=== PATIENT | male | born 1970 | race Caucasian/White ===

== ENCOUNTER 2022-02-25 14:43 | Observation (INO) | payer OTHER ==
[~2022-02-25] VITALS: Ht 191.8 cm; Wt 149.7 kg
[2022-02-25 15:21] LABS: BASOPHILS % (AUTO) 0.2 % (0.0-5.0); EOSINOPHILS % (AUTO) 0.1 % (0.0-8.0); HEMATOCRIT 33.2 % (42-54); LYMPHOCYTES % (AUTO) 9.3 % (21.0-51.0); MEAN CORPUSCULAR HEMOGLOBIN 33.7 pg (27.0-33.0); MEAN CORPUSCULAR HGB CONC 34.3 g/dL (32.0-36.0); MEAN CORPUSCULAR VOLUME 98.2 fL (79-99); MONOCYTES % (AUTO) 11.4 % (3.0-13.0); NEUTROPHILS % (AUTO) 78.4 % (40.0-77.0); PLATELET COUNT (AUTO) 98 K/uL (130-400); RED BLOOD CELL COUNT(AUTO) 3.38 MIL/uL (4.50-6.20); RED CELL DISTRIBUTION WIDTH 15.9 % (11.0-15.5); WHITE BLOOD COUNT (AUTO) 10.8 K/uL (4.8-10.8)
[2022-02-25] MEDS ORDERED: ACETAMINOPHEN 500 MG TABLET PO ONE (15:30)
[2022-02-25 15:38] LABS: APPEARANCE,URINE CLEAR (CLEAR); BILIRUBIN,URINE MODERATE (NEGATIVE); COLOR,URINE YELLOW (YELLOW); GLUCOSE, URINE (UA) NEGATIVE (NEGATIVE); KETONES,URINE NEGATIVE (NEGATIVE); LEUKOCYTE ESTERASE ,URINE NEGATIVE (NEGATIVE); NITRATE,URINE NEGATIVE (NEGATIVE); OCCULT BLOOD,URINE SMALL (NEGATIVE); PROTEIN,URINE 100 mg/dL (NEGATIVE)
[2022-02-25 15:40] LABS: B-TYPE NATRIURETIC PEPTIDE 85 pg/mL (0-100)
[2022-02-25] MEDS: 0.9%NACL 1000ML 1,000 ML IV SCH ×2 (15:45→21:09)
[2022-02-25 15:48] LABS: BACTERIA,URINE Rare /HPF (None Seen); SQUAMOUS EPITHELIAL CELL,UR Rare /HPF (0-2); WBC,URINE 0-1 /HPF (0-1)
[2022-02-25] MEDS ORDERED: LACTULOSE 20 GM/30 ML UDCUP ONE (15:52)
[2022-02-25 15:55] LABS: CREATININE 1.4 mg/dL (0.5-1.5); POTASSIUM 4.4 mmol/L (3.5-5.1)
[2022-02-25 15:59] LABS: ALBUMIN 1.9 g/dL (3.5-5.0); TOTAL PROTEIN, SERUM 5.4 g/dL (6.0-8.3)
[2022-02-25] MEDS ORDERED: LACTULOSE 20 GM/30 ML UDCUP PO PRN (16:00)
[2022-02-25] MEDS ORDERED: PROP10TA10 PO (16:23)
[2022-02-25] MEDS ORDERED: RIFA550T PO (16:23)
[2022-02-25] MEDS ORDERED: FURO40TA5 PO (16:23)
[2022-02-25] MEDS ORDERED: SPIR100T5 PO (16:23)
[2022-02-25] MEDS ORDERED: RIFAXIMIN 550 MG TABLET PO SCH ×2 (16:30→21:00)
[2022-02-25] MEDS: TRAMADOL HCL 50 MG TABLET PO PRN (20:36)
[2022-02-25] MEDS: LACTULOSE 20 GM/30 ML UDCUP PO SCH (20:52)
[2022-02-25 23:28] VITALS: BP 131/53
[2022-02-26] MEDS: TRAMADOL HCL 50 MG TABLET PO PRN (01:14)
[2022-02-26] MEDS ORDERED: DESV100T PO (02:05)
[2022-02-26] MEDS ORDERED: PROP10TA10 PO (02:07)
[2022-02-26] MEDS ORDERED: DIPHENHYDRAMINE HCL 25 MG CAPSULE PO PRN (02:30)
[2022-02-26] MEDS ORDERED: MORPHINE 2 MG SYG IVP PRN (02:30)
[2022-02-26] MEDS ORDERED: DiphenhydrAMINE HCL 50 MG/ML VIAL IV PRN (02:30)
[2022-02-26] MEDS ORDERED: KCL 20 MEQ ERTAB PO PRN (02:30)
[2022-02-26] MEDS ORDERED: GLUCAGON 1MG KIT 1 MG ML IM PRN (02:30)
[2022-02-26] MEDS ORDERED: POTASSIUM CHLORIDE 20MEQ/100ML 100 ML IV PRN (02:30)
[2022-02-26] MEDS ORDERED: ONDANSETRON 4MG INJ IV PRN (02:30)
[2022-02-26] MEDS ORDERED: DEXTROSE 50%-WATER 50 ML DISP.SYRIN IV PRN (02:30)
[2022-02-26] MEDS ORDERED: MAG/ALUM/SIMETH 30 ML UDCUP PO PRN (02:30)
[2022-02-26] MEDS ORDERED: ACETAMINOPHEN 325 MG TAB PO PRN ×2 (02:30)
[2022-02-26] MEDS ORDERED: LIDOCAINE HCL-MPF 1% 2ML VIAL IV PRN (02:30)
[2022-02-26] MEDS ORDERED: POTASSIUM CHLORIDE 10% ELIXIR 20 MEQ/15 ML UDCUP PO PRN (02:30)
[2022-02-26] MEDS: PROPRANOLOL HCL 10 MG TAB PO SCH ×2 (02:32→08:19)
[2022-02-26] MEDS: 0.9%NACL 1000ML 1,000 ML IV SCH ×2 (02:33)
[2022-02-26 04:36] VITALS: BP 127/55
[2022-02-26 05:00] LABS: BASOPHILS % (AUTO) 0.4 % (0.0-5.0); EOSINOPHILS % (AUTO) 2.2 % (0.0-8.0); LYMPHOCYTES % (AUTO) 22.1 % (21.0-51.0); MEAN CORPUSCULAR HEMOGLOBIN 34.7 pg (27.0-33.0); MEAN CORPUSCULAR HGB CONC 34.8 g/dL (32.0-36.0); MEAN CORPUSCULAR VOLUME 99.7 fL (79-99); NEUTROPHILS % (AUTO) 57.9 % (40.0-77.0); PLATELET COUNT (AUTO) 74 K/uL (130-400); RED BLOOD CELL COUNT(AUTO) 2.91 MIL/uL (4.50-6.20)
[2022-02-26 05:10] LABS: CREATININE 1.3 mg/dL (0.5-1.5); POTASSIUM 3.7 mmol/L (3.5-5.1)
[2022-02-26] MEDS: INSULIN HUMULIN R 100 UNIT/ML 3ML SQ SCH ×2 (07:30→11:30)
[2022-02-26 08:00] VITALS: BP 124/64
[2022-02-26] MEDS: RIFAXIMIN 550 MG TABLET PO SCH ×2 (08:19→15:10)
[2022-02-26] MEDS: LACTULOSE 20 GM/30 ML UDCUP PO SCH (08:24)
[2022-02-26] MEDS ORDERED: PROPRANOLOL HCL 10 MG TAB PO SCH (09:00)
[2022-02-26] MEDS ORDERED: SPIRONOLACTONE 25 MG TAB PO SCH (09:00)
[2022-02-26] MEDS ORDERED: PANTOPRAZOLE 40 MG TAB DR PO SCH (09:00)
[2022-02-26] MEDS ORDERED: RIFA550T PO (09:27)
[2022-02-26 11:00] VITALS: BP 122/53
[2022-02-26 16:00] VITALS: BP 156/67
== END 2022-02-26 17:45 | disposition home or self-care (01) ==
LOC: EDH 14:43 → EDHIP 16:29 → 3BH 23:49
PROVIDERS: ADMIT Internal Medicine; ATTEND Internal Medicine
DX: K72.00 Acute and subacute hepatic failure without coma (principal); Z20.822 Contact with and (suspected) exposure to COVID-19; K70.30 Alcoholic cirrhosis of liver without ascites; J30.9 Allergic rhinitis, unspecified; K59.00 Constipation, unspecified; F32.9 Major depressive disorder, single episode, unspecified; I12.9 Hypertensive chronic kidney disease with stage 1 through stage 4 chronic kidney disease, or unspecified chronic kidney disease; N18.2 Chronic kidney disease, stage 2 (mild); N20.0 Calculus of kidney; E66.9 Obesity, unspecified; Z90.49 Acquired absence of other specified parts of digestive tract; Z91.14 Patient's other noncompliance with medication regimen; Z91.19 Patient's noncompliance with other medical treatment and regimen; Z98.84 Bariatric surgery status; Z68.39 Body mass index [BMI] 39.0-39.9, adult; Z79.899 Other long term (current) drug therapy
CPT/HCPCS: 96361 ×2; 99285; 84484; 80053; 83880; 82140 ×2; 83690; 85025 ×2; 87040 ×2; 87804 ×2; 83605; 81001; 36415 ×2; 87635; 71045; 74176; 96374; 80048; 87046; 82948 ×3; 87177; 83630; C9803; Q0163; G0378 ×15; J7030

== ENCOUNTER 2022-09-03 22:41 | Emergency (ER) | payer OTHER ==
[~2022-09-03] VITALS: Ht 190.5 cm; Wt 148.3 kg
[~2022-09-03 22:41] MED LIST: DESV100T PO; FURO40TA5 PO; LACT460C PO; PANT40TA54 PO; POTA10TA PO; PROP10TA10 PO; RIFA550T PO; SPIR100T5 PO
[2022-09-04 00:57] LABS: BASOPHILS % (AUTO) 0.6 % (0.0-5.0); HEMATOCRIT 29.5 % (42-54); MEAN CORPUSCULAR HEMOGLOBIN 34.3 pg (27.0-33.0); MEAN CORPUSCULAR HGB CONC 34.9 g/dL (32.0-36.0); MEAN CORPUSCULAR VOLUME 98.3 fL (79-99); MONOCYTES % (AUTO) 12.2 % (3.0-13.0); NEUTROPHILS % (AUTO) 54.9 % (40.0-77.0); PLATELET COUNT (AUTO) 142 K/uL (130-400); RED CELL DISTRIBUTION WIDTH 16.3 % (11.0-15.5); WHITE BLOOD COUNT (AUTO) 6.6 K/uL (4.8-10.8)
[2022-09-04 01:55] LABS: ALBUMIN 2.2 g/dL (3.5-5.0); CREATININE 1.4 mg/dL (0.5-1.5); POTASSIUM 5.2 mmol/L (3.5-5.1); TOTAL PROTEIN, SERUM 5.5 g/dL (6.0-8.3)
[2022-09-04] MEDS ORDERED: TRAMADOL HCL 50 MG TABLET ONE (02:58)
[2022-09-04] MEDS ORDERED: TRAMADOL HCL 50 MG TABLET PO ONE (03:00)
[2022-09-04 06:02] VITALS: BP 162/87
== END 2022-09-04 06:38 | disposition home or self-care (01) ==
LOC: EDH 22:41
DX: E66.8 Other obesity (principal); K70.30 Alcoholic cirrhosis of liver without ascites; Z79.899 Other long term (current) drug therapy; Z90.49 Acquired absence of other specified parts of digestive tract; Z98.890 Other specified postprocedural states
CPT/HCPCS: 36415; 80053; 82140; 85025

== ENCOUNTER → 2022-11-24 | Outpatient (CLI) | payer OTHER | END | disposition home or self-care (01) | LOC: RAH 07:54 | PROVIDERS: ATTEND Internal Medicine | DX: R60.1 Generalized edema (principal); Z90.49 Acquired absence of other specified parts of digestive tract | CPT/HCPCS: 76700 ==

== ENCOUNTER 2022-11-30 06:53 | Emergency (ER) | payer OTHER ==
[~2022-11-30 06:53] MED LIST changes: +POTA-215 PO; -POTA10TA PO
[2022-11-30 07:48] LABS: BASOPHILS % (AUTO) 0.9 % (0.0-5.0); EOSINOPHILS % (AUTO) 2.6 % (0.0-8.0); HEMATOCRIT 25.6 % (42-54); LYMPHOCYTES % (AUTO) 24.3 % (21.0-51.0); MEAN CORPUSCULAR HEMOGLOBIN 35.4 pg (27.0-33.0); MEAN CORPUSCULAR VOLUME 104.1 fL (79-99); MONOCYTES % (AUTO) 13.4 % (3.0-13.0); NEUTROPHILS % (AUTO) 58.2 % (40.0-77.0); PLATELET COUNT (AUTO) 105 K/uL (130-400); RED BLOOD CELL COUNT(AUTO) 2.46 MIL/uL (4.50-6.20); RED CELL DISTRIBUTION WIDTH 18.9 % (11.0-15.5)
[2022-11-30 08:21] LABS: ALBUMIN 1.6 g/dL (3.5-5.0); CREATININE 1.5 mg/dL (0.5-1.5); POTASSIUM 3.7 mmol/L (3.5-5.1); TOTAL PROTEIN, SERUM 5.1 g/dL (6.0-8.3)
[2022-11-30 08:41] LABS: MAGNESIUM 1.3 mg/dL (1.80-2.40)
[2022-11-30 09:30] LABS: APPEARANCE,URINE CLEAR (CLEAR); BILIRUBIN,URINE 0.5 mg/dL (NEGATIVE); COLOR,URINE YELLOW (YELLOW); GLUCOSE, URINE (UA) NEGATIVE (NEGATIVE); KETONES,URINE NEGATIVE (NEGATIVE); LEUKOCYTE ESTERASE ,URINE NEGATIVE Leu/uL (NEGATIVE); NITRATE,URINE NEGATIVE (NEGATIVE); OCCULT BLOOD,URINE MODERATE (NEGATIVE); PH,URINE 6.5 (5.0-8.0); PROTEIN,URINE 50 mg/dL (NEGATIVE); UROBILINOGEN,URINE 3 mg/dL (0.2-1.0)
[2022-11-30] MEDS ORDERED: MAGNESIUM OXIDE 400 MG TABLET PO SCH (09:30)
[2022-11-30] MEDS ORDERED: BUMETANIDE 1MG/4ML VIAL IM SCH (09:30)
[2022-11-30 09:50] LABS: B-TYPE NATRIURETIC PEPTIDE 111 pg/mL (0-100)
[2022-11-30 10:11] LABS: BACTERIA,URINE RARE /HPF (None Seen)
[2022-11-30 11:32] VITALS: BP 136/78
== END 2022-11-30 11:33 | disposition home or self-care (01) ==
LOC: EDH 06:53
DX: E88.09 Other disorders of plasma-protein metabolism, not elsewhere classified (principal); R60.9 Edema, unspecified; K74.60 Unspecified cirrhosis of liver; Z79.899 Other long term (current) drug therapy
CPT/HCPCS: 99284; 83735; 80053; 83880; 85025; 81001; 36415; J3490

== ENCOUNTER 2023-01-04 00:27 | Emergency (ER) | payer OTHER ==
[~2023-01-04 00:27] MED LIST changes: +FERR-82 PO; -FURO40TA5 PO; +FURO80TA87 PO; +LACT10SO9 PO; +LINA72CA PO; +METO5TAB7 PO; +ONDA-104 PO; -POTA-215 PO; +POTA-364 PO
[2023-01-04 00:58] LABS: APPEARANCE,URINE CLEAR (CLEAR); BILIRUBIN,URINE 0.5 mg/dL (NEGATIVE); COLOR,URINE DARK-YELLOW (YELLOW); GLUCOSE, URINE (UA) NEGATIVE (NEGATIVE); KETONES,URINE NEGATIVE (NEGATIVE); LEUKOCYTE ESTERASE ,URINE NEGATIVE Leu/uL (NEGATIVE); NITRATE,URINE NEGATIVE (NEGATIVE); OCCULT BLOOD,URINE MODERATE (NEGATIVE); PH,URINE 6.5 (5.0-8.0); PROTEIN,URINE 20 mg/dL (NEGATIVE); UROBILINOGEN,URINE 6 mg/dL (0.2-1.0)
[2023-01-04 01:02] LABS: MUCUS,URINE FEW LPF (None Seen); TRIPLE PHOSPHATE CRYSTAL,UR RARE /LPF (None Seen)
[2023-01-04 01:14] LABS: AMPHET/METH SCREEN,URINE NEGATIVE (NEGATIVE); BARBITURATE SCREEN, URINE NEGATIVE (NEGATIVE); BENZODIAZEPINES SCREEN,URINE NEGATIVE (NEGATIVE); CANNABINOID SCREEN,URINE NEGATIVE (NEGATIVE); COCAINE SCREEN,URINE NEGATIVE (NEGATIVE); OPIATE SCREEN,URINE NEGATIVE (NEGATIVE); PHENCYCLIDINE SCREEN,URINE NEGATIVE (NEGATIVE)
[2023-01-04 01:23] LABS: BASOPHILS % (AUTO) 0.7 % (0.0-5.0); EOSINOPHILS % (AUTO) 3.6 % (0.0-8.0); HEMATOCRIT 25.3 % (42-54); LYMPHOCYTES % (AUTO) 24.1 % (21.0-51.0); MEAN CORPUSCULAR HEMOGLOBIN 34.3 pg (27.0-33.0); MEAN CORPUSCULAR HGB CONC 33.2 g/dL (32.0-36.0); MEAN CORPUSCULAR VOLUME 103.3 fL (79-99); MONOCYTES % (AUTO) 18.3 % (3.0-13.0); NEUTROPHILS % (AUTO) 52.9 % (40.0-77.0); PLATELET COUNT (AUTO) 99 K/uL (130-400); RED BLOOD CELL COUNT(AUTO) 2.45 MIL/uL (4.50-6.20); RED CELL DISTRIBUTION WIDTH 16.5 % (11.0-15.5); WHITE BLOOD COUNT (AUTO) 7.2 K/uL (4.8-10.8)
[2023-01-04 01:32] LABS: POTASSIUM 3.2 mmol/L (3.5-5.1)
[2023-01-04 01:38] LABS: ALBUMIN 1.8 g/dL (3.5-5.0); TOTAL PROTEIN, SERUM 5.5 g/dL (6.0-8.3)
[2023-01-04] MEDS ORDERED: PANTOPRAZOLE 40 MG/VIAL IVP ONE (03:00)
[2023-01-04] MEDS ORDERED: METOCLOPRAMIDE 10 MG/2 ML VIAL IVP ONE (03:00)
[2023-01-04] MEDS ORDERED: LACTULOSE 20 GM/30 ML UDCUP PO ONE (05:30)
[2023-01-04] MEDS ORDERED: LACTATED RINGERS 1000ML 1,000 ML IV ONE (05:30)
[2023-01-04 08:11] VITALS: BP 159/62
== END 2023-01-04 08:12 | disposition home or self-care (01) ==
LOC: EDH 00:27
DX: K74.60 Unspecified cirrhosis of liver (principal); F10.229 Alcohol dependence with intoxication, unspecified; E87.6 Hypokalemia; N18.9 Chronic kidney disease, unspecified; Z79.899 Other long term (current) drug therapy
CPT/HCPCS: 99285; 70450; 96374; 71045; 96361; 96375; 82550; 80053; 80305; 82140; 83690; 85025; 83605 ×2; 81001; 36415; 72170; 72125; J7120; C9113; J2765

== ENCOUNTER 2023-01-09 11:04 | Inpatient (IN) | payer OTHER ==
[2023-01-09] VITALS (21 sets, daily range): BP systolic 101–119; BP diastolic 34–56; PULSE 86–94; RESP 14–26; O2SAT 92–95
[~2023-01-09] VITALS: Ht 190.5 cm; Wt 161.5 kg
[~2023-01-09 11:04] MED LIST changes: +ETOMIDATE 20MG VIAL IVP ONE
[2023-01-09] MEDS ORDERED: DEXTROSE 10%-WATER 1,000 ML IV ONE (11:09)
[2023-01-09] MEDS ORDERED: DEXTROSE 50%-WATER 50 ML DISP.SYRIN IV ONE ×3 (11:23→12:06)
[2023-01-09 11:31] LABS: ABG BASE EXCESS -24.2 mmol/L (-2.0-3.0); ABG HCO3 5.5 mmol/L (21.0-28.0); ABG OXYGEN SATURATION 95.3 % (95.0-99.0); ABG PCO2 24 mmHg (35-48)
[2023-01-09] MEDS ORDERED: CEFTRIAXONE 2GM VIAL ONE (11:36)
[2023-01-09 11:58] LABS: BASOPHILS % (AUTO) 0.2 % (0.0-5.0); EOSINOPHILS % (AUTO) 0.3 % (0.0-8.0); LYMPHOCYTES % (AUTO) 6.1 % (21.0-51.0); MEAN CORPUSCULAR HEMOGLOBIN 35.5 pg (27.0-33.0); MEAN CORPUSCULAR HGB CONC 29.3 g/dL (32.0-36.0); MEAN CORPUSCULAR VOLUME 120.9 fL (79-99); MONOCYTES % (AUTO) 2.5 % (3.0-13.0); NEUTROPHILS % (AUTO) 83.2 % (40.0-77.0); NUCLEATED RED BLOOD CELLS 1.2 % (0.0-0.19); PLATELET COUNT (AUTO) 43 K/uL (130-400); RED BLOOD CELL COUNT(AUTO) 1.72 MIL/uL (4.50-6.20); RED CELL DISTRIBUTION WIDTH 19.4 % (11.0-15.5); WHITE BLOOD COUNT (AUTO) 23.6 K/uL (4.8-10.8)
[2023-01-09 12:02] LABS: CHLORIDE 91 mmol/L (101-111); GLOMERULAR FILTR. RATE CALC 13 mL/min (>90); GLUCOSE,RANDOM 237 mg/dL (70-105); POTASSIUM 4.6 mmol/L (3.5-5.1); SODIUM SERUM 130 mmol/L (136-145); UREA NITROGEN, BLOOD 32 mg/dL (7-18)
[2023-01-09 12:04] LABS: CARBON DIOXIDE 9 mmol/L (21-32)
[2023-01-09 12:15] LABS: HEMATOCRIT 20.8 % (42-54)
[2023-01-09 12:15] LABS: ALANINE AMINOTRANSFERASE 165 U/L (12-78); ALBUMIN 1.1 g/dL (3.5-5.0); TOTAL PROTEIN, SERUM 3.7 g/dL (6.0-8.3)
[2023-01-09 12:16] LABS: INR > 7.00 (0.85-1.15); PROTHROMBIN TIME 76.6 SEC (9.6-11.6)
[2023-01-09 12:17] LABS: PARTIAL THROMBOPLASTIN TIME 90.4 SEC (26.3-35.5)
[2023-01-09 12:29] LABS: AMMONIA < 10 umol/L (11-32)
[2023-01-09 12:30] LABS: ABG BASE EXCESS -24.3 mmol/L (-2.0-3.0); ABG HCO3 4.2 mmol/L (21.0-28.0); ABG OXYGEN SATURATION 99.5 % (95.0-99.0); ABG PCO2 16 mmHg (35-48)
[2023-01-09 13:30] LABS: ASPARTATE AMINOTRANSFERASE 818 U/L (10-37)
[2023-01-09 13:31] LABS: CREATINE KINASE, TOTAL 7709 U/L (21-232)
[2023-01-09] MEDS ORDERED: ATROPINE 1MG SYG IVP ONE (15:02)
[2023-01-09] MEDS ORDERED: PHYTONADIONE 10 MG in 0.9%NACL 50ML 50 ML IVPB SCH (15:30)
[2023-01-09] MEDS ORDERED: LACTULOSE 20 GM/30 ML UDCUP PO PRN (15:30)
[2023-01-09] MEDS ORDERED: CHLORDIAZEPOXIDE HCL 25 MG CAP PO PRN ×2 (15:30)
[2023-01-09] MEDS ORDERED: DIPHENHYDRAMINE HCL 25 MG CAPSULE PO PRN (15:30)
[2023-01-09] MEDS ORDERED: PHARMACY COMMUNICATION MISC PRN (15:30)
[2023-01-09] MEDS ORDERED: HYDRALAZINE 25MG TABLET PO PRN (15:30)
[2023-01-09] MEDS ORDERED: GUAIFENESIN-DM 200/20 MG 10 ML PO PRN (15:30)
[2023-01-09] MEDS ORDERED: DiphenhydrAMINE HCL 50 MG/ML VIAL IV PRN (15:30)
[2023-01-09] MEDS ORDERED: ONDANSETRON 4MG INJ IV PRN ×2 (15:30)
[2023-01-09] MEDS ORDERED: LORAZEPAM 2 MG/ML 1 ML VIAL IVP PRN ×2 (15:30)
[2023-01-09] MEDS ORDERED: NITROGLYCERIN 0.4 MG SL TAB SL PRN (15:30)
[2023-01-09] MEDS ORDERED: POLYETHYLENE GLYCOL 3350 17 GM POWD.PACK PO PRN (15:30)
[2023-01-09] MEDS ORDERED: ALBUTEROL 0.083% 2.5 MG/3 ML INH IH PRN (15:30)
[2023-01-09] MEDS ORDERED: VANCOMYCIN PROTOCOL PER PHARMACY IV SCH (16:00)
[2023-01-09] MEDS ORDERED: OCTREOTIDE ACETATE 1,250 MCG in 0.9% NACL 250ML 250 ML IV SCH (16:00)
[2023-01-09] MEDS ORDERED: CEFEPIME HCL 2 GM VIAL IVPB SCH (16:30)
[2023-01-09] MEDS: SODIUM BICARB 8.4% 50ML SYRING 150 MEQ in DEXTROSE 5%-WATER 1,000 ML IVP SCH (16:36)
[2023-01-09] MEDS: THIAMINE HCL 100 MG, FOLIC ACID 1 MG, M.V.I. IV [ADULT] 10 ML in 0.9%NACL 1000ML 1,000 ML IV SCH (16:36)
[2023-01-09] MEDS: MEROPENEM 500 MG in 0.9%NACL 100ML 100 ML IV SCH (16:46)
[2023-01-09] MEDS ORDERED: VANCOMYCIN 1.5 GM/250 ML BAG 250 ML IV SCH (17:00)
[2023-01-09 21:00] LABS: HEMATOCRIT 25.5 % (42-54)
[2023-01-09 21:10] LABS: CREATININE 4.8 mg/dL (0.5-1.5); POTASSIUM 4.7 mmol/L (3.5-5.1)
[2023-01-09] MEDS: LACTULOSE 20 GM/30 ML UDCUP PO SCH (21:38)
[2023-01-09] MEDS: RIFAXIMIN 550 MG TABLET PO SCH (21:38)
[2023-01-09] MEDS: PANTOPRAZOLE 40 MG/VIAL IVP SCH (21:38)
[2023-01-09 21:53] LABS: ABG BASE EXCESS -21.8 mmol/L (-2.0-3.0); ABG HCO3 6.3 mmol/L (21.0-28.0); ABG OXYGEN SATURATION 98.4 % (95.0-99.0); ABG PCO2 21 mmHg (35-48)
[2023-01-09] MEDS ORDERED: SODIUM BICARB 50MEQ 50ML VIAL IV STA (23:25)
[2023-01-10] VITALS (97 sets, daily range): BP systolic 55–152; BP diastolic 26–98; PULSE 81–103; RESP 12–68; O2SAT 94–100
[2023-01-10 03:50] LABS: BASOPHILS % (AUTO) 0.4 % (0.0-5.0); EOSINOPHILS % (AUTO) 0.1 % (0.0-8.0); MEAN CORPUSCULAR HEMOGLOBIN 32.6 pg (27.0-33.0); MEAN CORPUSCULAR HGB CONC 30.4 g/dL (32.0-36.0); MEAN CORPUSCULAR VOLUME 107.1 fL (79-99); MONOCYTES % (AUTO) 6.5 % (3.0-13.0); NEUTROPHILS % (AUTO) 77.6 % (40.0-77.0); NUCLEATED RED BLOOD CELLS 0.8 % (0.0-0.19); RED BLOOD CELL COUNT(AUTO) 2.24 MIL/uL (4.50-6.20); RED CELL DISTRIBUTION WIDTH 24.8 % (11.0-15.5); WHITE BLOOD COUNT (AUTO) 20.9 K/uL (4.8-10.8)
[2023-01-10 04:27] LABS: INR > 8.00 (0.85-1.15)
[2023-01-10 04:29] LABS: ALBUMIN 1.1 g/dL (3.5-5.0); POTASSIUM 4.4 mmol/L (3.5-5.1); TOTAL PROTEIN, SERUM 3.8 g/dL (6.0-8.3)
[2023-01-10 04:53] LABS: PLATELET COUNT (AUTO) 17 K/uL (130-400)
[2023-01-10] MEDS ORDERED: ALBUMIN (HUMAN) 25% 100 ML IV STA (05:01)
[2023-01-10] MEDS ORDERED: ALBUMIN (HUMAN) 25% 100 ML IV ONE (05:07)
[2023-01-10] MEDS ORDERED: FUROSEMIDE 40MG VIAL ONE (05:07)
[2023-01-10 05:10] LABS: ABG BASE EXCESS -18.6 mmol/L (-2.0-3.0); ABG HCO3 10.4 mmol/L (21.0-28.0); ABG OXYGEN SATURATION 95.2 % (95.0-99.0); ABG PCO2 38 mmHg (35-48)
[2023-01-10] MEDS ORDERED: SODIUM BICARB 50MEQ 50ML VIAL IVPB STA (05:25)
[2023-01-10] MEDS: MEROPENEM 500 MG in 0.9%NACL 100ML 100 ML IV SCH ×2 (05:26→17:18)
[2023-01-10] MEDS ORDERED: FUROSEMIDE 20MG VIAL IV ONE (05:30)
[2023-01-10] MEDS: SODIUM BICARB 8.4% 50ML SYRING 150 MEQ in DEXTROSE 5%-WATER 1,000 ML IVP SCH (08:30)
[2023-01-10] MEDS: PANTOPRAZOLE 40 MG/VIAL IVP SCH ×2 (08:56→20:27)
[2023-01-10 09:18] LABS: POTASSIUM 4.4 mmol/L (3.5-5.1)
[2023-01-10 09:19] LABS: HEMATOCRIT 20.9 % (42-54)
[2023-01-10] MEDS ORDERED: SODIUM BICARB 50MEQ 50ML VIAL IV STA (09:22)
[2023-01-10] MEDS ORDERED: ALBUMIN (HUMAN) 25% 50 ML IV ONE (09:26)
[2023-01-10] MEDS ORDERED: ALBUMIN (HUMAN) 25% 50 ML IV SCH (09:30)
[2023-01-10] MEDS: NOREPINEPHRINE 16MG/NS 250ML PREMIX IV SCH (10:18)
[2023-01-10] MEDS: LACTULOSE 20 GM/30 ML UDCUP PR SCH ×2 (11:00→17:00)
[2023-01-10] MEDS: LACTULOSE 20 GM/30 ML UDCUP PO SCH ×2 (12:43→23:50)
[2023-01-10] MEDS: RIFAXIMIN 550 MG TABLET PO SCH ×2 (12:44→20:27)
[2023-01-10] MEDS: ALBUMIN (HUMAN) 25% 50 ML IV SCH ×2 (15:44→20:28)
[2023-01-10] MEDS: THIAMINE HCL 100 MG, FOLIC ACID 1 MG, M.V.I. IV [ADULT] 10 ML in 0.9%NACL 1000ML 1,000 ML IV SCH (15:58)
[2023-01-10 16:21] LABS: ABG BASE EXCESS -9.3 mmol/L (-2.0-3.0); ABG HCO3 16.3 mmol/L (21.0-28.0); ABG OXYGEN SATURATION 96.6 % (95.0-99.0); ABG PCO2 34 mmHg (35-48)
[2023-01-10 17:01] LABS: HEMATOCRIT 23.4 % (42-54)
[2023-01-10 18:50] LABS: POTASSIUM 4.5 mmol/L (3.5-5.1)
[2023-01-10 22:54] LABS: HEMATOCRIT 21.8 % (42-54)
[2023-01-10 23:31] LABS: CREATININE 4.9 mg/dL (0.5-1.5); POTASSIUM 4.5 mmol/L (3.5-5.1)
[2023-01-11] VITALS (103 sets, daily range): BP systolic 83–151; BP diastolic 26–119; PULSE 97–108; RESP 10–46; O2SAT 92–100
[2023-01-11] MEDS: ALBUMIN (HUMAN) 25% 50 ML IV SCH ×4 (03:17→20:55)
[2023-01-11] MEDS: SODIUM BICARB 8.4% 50ML SYRING 150 MEQ in DEXTROSE 5%-WATER 1,000 ML IVP SCH ×2 (03:46→15:49)
[2023-01-11] MEDS: MEROPENEM 500 MG in 0.9%NACL 100ML 100 ML IV SCH ×2 (03:46→17:55)
[2023-01-11 03:54] LABS: ABG BASE EXCESS -4.6 mmol/L (-2.0-3.0); ABG HCO3 20.7 mmol/L (21.0-28.0); ABG OXYGEN SATURATION 95.3 % (95.0-99.0); ABG PCO2 39 mmHg (35-48)
[2023-01-11 03:56] LABS: BASOPHILS % (AUTO) 0.4 % (0.0-5.0); EOSINOPHILS % (AUTO) 0.1 % (0.0-8.0); HEMATOCRIT 21.9 % (42-54); MEAN CORPUSCULAR HEMOGLOBIN 31.7 pg (27.0-33.0); MEAN CORPUSCULAR HGB CONC 32.4 g/dL (32.0-36.0); MEAN CORPUSCULAR VOLUME 97.8 fL (79-99); MONOCYTES % (AUTO) 6.9 % (3.0-13.0); NEUTROPHILS % (AUTO) 84.2 % (40.0-77.0); NUCLEATED RED BLOOD CELLS 0.4 % (0.0-0.19); RED BLOOD CELL COUNT(AUTO) 2.24 MIL/uL (4.50-6.20); RED CELL DISTRIBUTION WIDTH 23.9 % (11.0-15.5); WHITE BLOOD COUNT (AUTO) 22.6 K/uL (4.8-10.8)
[2023-01-11] MEDS: NOREPINEPHRINE 16MG/NS 250ML PREMIX IV SCH (04:00)
[2023-01-11] MEDS ORDERED: SODIUM BICARB 50MEQ 50ML VIAL 50 ML ONE (04:10)
[2023-01-11 04:12] LABS: PARTIAL THROMBOPLASTIN TIME 76.8 SEC (26.3-35.5)
[2023-01-11 04:30] LABS: INR 4.66 (0.85-1.15); PROTHROMBIN TIME 48.9 SEC (9.6-11.6)
[2023-01-11] MEDS: SODIUM BICARB 8.4% 50ML SYRINGE IVP SCH (04:30)
[2023-01-11 05:08] LABS: PLATELET COUNT (AUTO) 6 K/uL (130-400)
[2023-01-11 05:21] LABS: ALBUMIN 1.8 g/dL (3.5-5.0); CREATININE 4.8 mg/dL (0.5-1.5); MAGNESIUM 1.2 mg/dL (1.80-2.40); PHOSPHORUS 8.5 mg/dL (2.5-4.9); POTASSIUM 4.5 mmol/L (3.5-5.1); TOTAL PROTEIN, SERUM 3.8 g/dL (6.0-8.3)
[2023-01-11] MEDS: LACTULOSE 20 GM/30 ML UDCUP PO SCH ×3 (06:01→17:55)
[2023-01-11] MEDS: RIFAXIMIN 550 MG TABLET PO SCH ×2 (09:38→20:55)
[2023-01-11] MEDS: PANTOPRAZOLE 40 MG/VIAL IVP SCH ×2 (09:38→20:55)
[2023-01-11 13:22] LABS: APPEARANCE,URINE CLOUDY (CLEAR); BILIRUBIN,URINE LARGE mg/dL (NEGATIVE); COLOR,URINE ORANGE (YELLOW); GLUCOSE, URINE (UA) 100 mg/dL (NEGATIVE); KETONES,URINE 15 mg/dL (NEGATIVE); LEUKOCYTE ESTERASE ,URINE MODERATE Leu/uL (NEGATIVE); NITRATE,URINE POSITIVE (NEGATIVE); OCCULT BLOOD,URINE LARGE (NEGATIVE); PH,URINE 6.5 (5.0-8.0); PROTEIN,URINE >=300 mg/dL (NEGATIVE)
[2023-01-11 13:40] LABS: BACTERIA,URINE Moderate /HPF (None Seen); RBC,URINE TNTC /HPF (0-1)
[2023-01-11 13:41] LABS: SQUAMOUS EPITHELIAL CELL,UR 0-2 /HPF (0-2); WBC,URINE 26-50 /HPF (0-1)
[2023-01-11] MEDS: THIAMINE HCL 100 MG, FOLIC ACID 1 MG, M.V.I. IV [ADULT] 10 ML in 0.9%NACL 1000ML 1,000 ML IV SCH (14:43)
[2023-01-11 17:39] LABS: ABG BASE EXCESS 1.4 mmol/L (-2.0-3.0); ABG HCO3 25.3 mmol/L (21.0-28.0); ABG OXYGEN SATURATION 93.8 % (95.0-99.0); ABG PCO2 38 mmHg (35-48)
[2023-01-11] MEDS ORDERED: DEXTROSE 50%-WATER 50 ML DISP.SYRIN IV ONE (20:41)
[2023-01-11] MEDS: HYDROCORTISONE SOD SUCCINATE 100 MG/2 ML VIAL IV SCH (20:55)
[2023-01-11] MEDS ORDERED: MAGNESIUM 2GM PREMIX 50ML 50 ML IV SCH (21:00)
[2023-01-11] MEDS ORDERED: NUT TX IMP RENAL FXN LAC REDUC NG SCH (23:30)
[2023-01-12] VITALS (97 sets, daily range): BP systolic 98–134; BP diastolic 28–77; PULSE 96–105; RESP 12–22; O2SAT 92–96
[2023-01-12] MEDS: LACTULOSE 20 GM/30 ML UDCUP PO SCH ×4 (00:25→17:37)
[2023-01-12] MEDS: ALBUMIN (HUMAN) 25% 50 ML IV SCH ×2 (03:18→08:50)
[2023-01-12] MEDS: MEROPENEM 500 MG in 0.9%NACL 100ML 100 ML IV SCH ×2 (03:19→17:37)
[2023-01-12] MEDS: SODIUM BICARB 8.4% 50ML SYRINGE IVP SCH (03:19)
[2023-01-12 04:18] LABS: BASOPHILS % (AUTO) 0.5 % (0.0-5.0); EOSINOPHILS % (AUTO) 0.1 % (0.0-8.0); LYMPHOCYTES % (AUTO) 4.8 % (21.0-51.0); MEAN CORPUSCULAR HEMOGLOBIN 31.9 pg (27.0-33.0); MEAN CORPUSCULAR HGB CONC 32.6 g/dL (32.0-36.0); MEAN CORPUSCULAR VOLUME 97.9 fL (79-99); MONOCYTES % (AUTO) 9.4 % (3.0-13.0); NEUTROPHILS % (AUTO) 79.1 % (40.0-77.0); NUCLEATED RED BLOOD CELLS 0.1 % (0.0-0.19); RED BLOOD CELL COUNT(AUTO) 1.91 MIL/uL (4.50-6.20); RED CELL DISTRIBUTION WIDTH 23.6 % (11.0-15.5); WHITE BLOOD COUNT (AUTO) 25.2 K/uL (4.8-10.8)
[2023-01-12 04:25] LABS: HEMATOCRIT 18.7 % (42-54); PLATELET COUNT (AUTO) 10 K/uL (130-400)
[2023-01-12 04:41] LABS: PROTHROMBIN TIME 42.4 SEC (9.6-11.6)
[2023-01-12 04:51] LABS: ALBUMIN 2.2 g/dL (3.5-5.0); MAGNESIUM 1.6 mg/dL (1.80-2.40); PHOSPHORUS 7.6 mg/dL (2.5-4.9); POTASSIUM 4.2 mmol/L (3.5-5.1); TOTAL PROTEIN, SERUM 3.9 g/dL (6.0-8.3)
[2023-01-12] MEDS: SODIUM BICARB 8.4% 50ML SYRING 150 MEQ in DEXTROSE 5%-WATER 1,000 ML IVP SCH (05:33)
[2023-01-12] MEDS ORDERED: DEXTROSE 50%-WATER 50 ML DISP.SYRIN IV ONE (06:43)
[2023-01-12] MEDS: HYDROCORTISONE SOD SUCCINATE 100 MG/2 ML VIAL IV SCH ×3 (08:50→22:08)
[2023-01-12] MEDS: PANTOPRAZOLE 40 MG/VIAL IVP SCH ×2 (08:50→22:07)
[2023-01-12] MEDS: RIFAXIMIN 550 MG TABLET PO SCH ×2 (08:50→22:07)
[2023-01-12 12:39] LABS: ABG BASE EXCESS -1.2 mmol/L (-2.0-3.0); ABG OXYGEN SATURATION 94.6 % (95.0-99.0); ABG PCO2 36 mmHg (35-48)
[2023-01-12] MEDS ORDERED: ALBUMIN (HUMAN) 25% 100 ML IV PRN ×2 (14:00→18:30)
[2023-01-12] MEDS ORDERED: PHARMACY COMMUNICATION MISC SCH (14:30)
[2023-01-12] MEDS ORDERED: MAGNESIUM 2GM PREMIX 50ML 50 ML IV ONE (15:04)
[2023-01-12] MEDS ORDERED: MAGNESIUM 2GM PREMIX 50ML 50 ML IV PRN (15:30)
[2023-01-12 18:27] LABS: HEMATOCRIT 20.2 % (42-54)
[2023-01-12] MEDS: CALCIUM GLUC 1GM 2 GM in 0.9%NACL 100ML 100 ML IV SCH (22:11)
[2023-01-12] MEDS: NOREPINEPHRINE 16MG/NS 250ML PREMIX IV SCH (22:27)
[2023-01-13] VITALS (99 sets, daily range): BP systolic 71–186; BP diastolic 23–100; PULSE 92–106; RESP 12–26; O2SAT 84–99
[2023-01-13] MEDS: LACTULOSE 20 GM/30 ML UDCUP PO SCH ×4 (00:11→18:25)
[2023-01-13] MEDS: MEROPENEM 500 MG in 0.9%NACL 100ML 100 ML IV SCH ×2 (04:07→15:04)
[2023-01-13 04:29] LABS: HEMATOCRIT 22.7 % (42-54); MEAN CORPUSCULAR HEMOGLOBIN 30.9 pg (27.0-33.0); MEAN CORPUSCULAR VOLUME 93.4 fL (79-99); NUCLEATED RED BLOOD CELLS 0.4 % (0.0-0.19); PLATELET COUNT (AUTO) 22 K/uL (130-400); RED BLOOD CELL COUNT(AUTO) 2.43 MIL/uL (4.50-6.20); RED CELL DISTRIBUTION WIDTH 22.5 % (11.0-15.5)
[2023-01-13 04:32] LABS: WHITE BLOOD COUNT (AUTO) 37.3 K/uL (4.8-10.8)
[2023-01-13 04:41] LABS: PARTIAL THROMBOPLASTIN TIME 70.2 SEC (26.3-35.5)
[2023-01-13 05:00] LABS: ALBUMIN 2.1 g/dL (3.5-5.0); CREATININE 5.6 mg/dL (0.5-1.5); MAGNESIUM 1.8 mg/dL (1.80-2.40); PHOSPHORUS 7.6 mg/dL (2.5-4.9); POTASSIUM 4.3 mmol/L (3.5-5.1); TOTAL PROTEIN, SERUM 3.9 g/dL (6.0-8.3)
[2023-01-13 05:03] LABS: PROTHROMBIN TIME 45.6 SEC (9.6-11.6)
[2023-01-13 05:04] LABS: INR 4.33 (0.85-1.15)
[2023-01-13 05:09] LABS: BAND NEUTROPHILS % (MANUAL) 8 % (0-2); LYMPHOCYTES % (MANUAL) 3 % (22-44); MONOCYTES % (MANUAL) 12 % (2-9); SEGMENTED NEUTROPHILS % 77 % (40-70)
[2023-01-13 05:10] LABS: MAN.DIFF COMMENT-IMPRESSION MANUAL DIFFERENTIAL; PLATELET MORPHOLOGY COMMENT DECREASED
[2023-01-13] MEDS ORDERED: DEXTROSE 50%-WATER 50 ML DISP.SYRIN IV ONE ×3 (05:41→13:03)
[2023-01-13] MEDS: PANTOPRAZOLE 40 MG/VIAL IVP SCH ×2 (08:37→20:39)
[2023-01-13] MEDS: HYDROCORTISONE SOD SUCCINATE 100 MG/2 ML VIAL IV SCH ×3 (08:37→20:39)
[2023-01-13] MEDS: Vitamin B Complex/Vit C/Folic Acid PO SCH (08:37)
[2023-01-13] MEDS: THIAMINE HCL 100 MG TABLET PO SCH (08:37)
[2023-01-13] MEDS: RIFAXIMIN 550 MG TABLET PO SCH ×2 (08:37→20:39)
[2023-01-13] MEDS: MIDODRINE HCL 5 MG TABLET PO SCH ×3 (10:31→20:39)
[2023-01-13 12:02] LABS: HEMATOCRIT 23.1 % (42-54)
[2023-01-13] MEDS ORDERED: DEXTROSE 10%-WATER 1,000 ML IV SCH (13:00)
[2023-01-13] MEDS ORDERED: HYDROMORPHONE 0.5 MG SYG (0.5MG/0.5ML) IVP PRN (15:00)
[2023-01-14] VITALS (131 sets, daily range): BP systolic 72–158; BP diastolic 28–119; PULSE 87–102; RESP 11–22; O2SAT 94–98
[2023-01-14] MEDS: LACTULOSE 20 GM/30 ML UDCUP PO SCH ×4 (00:02→18:07)
[2023-01-14 04:12] LABS: BASOPHILS % (AUTO) 0.1 % (0.0-5.0); EOSINOPHILS % (AUTO) 0.1 % (0.0-8.0); HEMATOCRIT 22.1 % (42-54); LYMPHOCYTES % (AUTO) 5.7 % (21.0-51.0); MEAN CORPUSCULAR HEMOGLOBIN 30.6 pg (27.0-33.0); MEAN CORPUSCULAR HGB CONC 32.1 g/dL (32.0-36.0); MEAN CORPUSCULAR VOLUME 95.3 fL (79-99); MONOCYTES % (AUTO) 11.9 % (3.0-13.0); NEUTROPHILS % (AUTO) 78.7 % (40.0-77.0); NUCLEATED RED BLOOD CELLS 0.6 % (0.0-0.19); PLATELET COUNT (AUTO) 17 K/uL (130-400); RED BLOOD CELL COUNT(AUTO) 2.32 MIL/uL (4.50-6.20); RED CELL DISTRIBUTION WIDTH 23.3 % (11.0-15.5)
[2023-01-14 04:25] LABS: PARTIAL THROMBOPLASTIN TIME 80.8 SEC (26.3-35.5)
[2023-01-14 04:29] LABS: PROTHROMBIN TIME 62.7 SEC (9.6-11.6)
[2023-01-14 04:30] LABS: INR 6.08 (0.85-1.15)
[2023-01-14 04:49] LABS: ALBUMIN 1.8 g/dL (3.5-5.0); CREATININE 6.3 mg/dL (0.5-1.5); PHOSPHORUS 7.2 mg/dL (2.5-4.9); POTASSIUM 4.2 mmol/L (3.5-5.1); TOTAL PROTEIN, SERUM 3.5 g/dL (6.0-8.3)
[2023-01-14] MEDS: MIDODRINE HCL 5 MG TABLET PO SCH ×3 (05:34→22:03)
[2023-01-14] MEDS: MEROPENEM 500 MG in 0.9%NACL 100ML 100 ML IV SCH ×2 (05:35→18:07)
[2023-01-14 07:56] LABS: ABG BASE EXCESS -0.6 mmol/L (-2.0-3.0); ABG HCO3 24.5 mmol/L (21.0-28.0); ABG OXYGEN SATURATION 92.5 % (95.0-99.0); ABG PCO2 42 mmHg (35-48)
[2023-01-14] MEDS ORDERED: CALCIUM GLUC 1GM/10ML VIAL IVPB STA (08:03)
[2023-01-14] MEDS ORDERED: CALCIUM GLUC 1GM/10ML VIAL ONE ×2 (08:14)
[2023-01-14] MEDS: PANTOPRAZOLE 40 MG/VIAL IVP SCH ×2 (08:32→22:02)
[2023-01-14] MEDS: RIFAXIMIN 550 MG TABLET PO SCH ×2 (08:32→22:03)
[2023-01-14] MEDS: THIAMINE HCL 100 MG TABLET PO SCH (08:32)
[2023-01-14] MEDS: HYDROCORTISONE SOD SUCCINATE 100 MG/2 ML VIAL IV SCH ×3 (08:32→22:02)
[2023-01-14] MEDS: Vitamin B Complex/Vit C/Folic Acid PO SCH (08:32)
[2023-01-14] MEDS ORDERED: ALBUMIN (HUMAN) 25% 100 ML IV PRN (09:30)
[2023-01-14] MEDS: 0.9%NACL 1000ML 1,000 ML IV SCH ×2 (09:51→19:30)
[2023-01-14] MEDS ORDERED: PHARMACY COMMUNICATION MISC SCH (10:30)
[2023-01-14 16:02] LABS: INR 3.08 (0.85-1.15); PROTHROMBIN TIME 33.2 SEC (9.6-11.6)
[2023-01-14 16:04] LABS: PARTIAL THROMBOPLASTIN TIME 59.2 SEC (26.3-35.5)
[2023-01-15] VITALS (149 sets, daily range): BP systolic 88–181; BP diastolic 35–100; PULSE 85–103; RESP 14–30; TEMP 97.7–97.8; O2SAT 95–99
[2023-01-15] MEDS: LACTULOSE 20 GM/30 ML UDCUP PO SCH ×5 (00:05→21:57)
[2023-01-15 04:16] LABS: BASOPHILS % (AUTO) 0.1 % (0.0-5.0); EOSINOPHILS % (AUTO) 0.1 % (0.0-8.0); HEMATOCRIT 23.9 % (42-54); LYMPHOCYTES % (AUTO) 5.9 % (21.0-51.0); MEAN CORPUSCULAR HEMOGLOBIN 30.4 pg (27.0-33.0); MEAN CORPUSCULAR HGB CONC 32.2 g/dL (32.0-36.0); MEAN CORPUSCULAR VOLUME 94.5 fL (79-99); NEUTROPHILS % (AUTO) 79.1 % (40.0-77.0); NUCLEATED RED BLOOD CELLS 1.1 % (0.0-0.19); PLATELET COUNT (AUTO) 21 K/uL (130-400); RED BLOOD CELL COUNT(AUTO) 2.53 MIL/uL (4.50-6.20); RED CELL DISTRIBUTION WIDTH 22.5 % (11.0-15.5)
[2023-01-15 04:26] LABS: WHITE BLOOD COUNT (AUTO) 44.3 K/uL (4.8-10.8)
[2023-01-15 04:31] LABS: PARTIAL THROMBOPLASTIN TIME 62.7 SEC (26.3-35.5)
[2023-01-15 04:32] LABS: % IRON SATURATION 123.5 % (30-44)
[2023-01-15 04:34] LABS: INR 4.4 (0.85-1.15); PROTHROMBIN TIME 46.3 SEC (9.6-11.6)
[2023-01-15 04:40] LABS: ALANINE AMINOTRANSFERASE 556 U/L (12-78); CARBON DIOXIDE 25 mmol/L (21-32); CHLORIDE 92 mmol/L (101-111); CHOLESTEROL < 50 mg/dL (<200); CREATININE 6.7 mg/dL (0.5-1.5); GLOMERULAR FILTR. RATE CALC 9 mL/min (>90); GLUCOSE,RANDOM 104 mg/dL (70-105); HDL CHOLESTEROL 12 mg/dL (29-71); LDL DIRECT 32 mg/dL (0-99); POTASSIUM 4.3 mmol/L (3.5-5.1); SODIUM SERUM 132 mmol/L (136-145); TOTAL PROTEIN, SERUM 3.9 g/dL (6.0-8.3); TRIGLYCERIDES 51 mg/dL (30-200); UREA NITROGEN, BLOOD 39 mg/dL (7-18)
[2023-01-15 04:43] LABS: ASPARTATE AMINOTRANSFERASE 785 U/L (10-37)
[2023-01-15] MEDS: 0.9%NACL 1000ML 1,000 ML IV SCH ×2 (05:30→15:18)
[2023-01-15] MEDS: MIDODRINE HCL 5 MG TABLET PO SCH ×3 (07:18→21:57)
[2023-01-15] MEDS: MEROPENEM 500 MG in 0.9%NACL 100ML 100 ML IV SCH ×2 (07:20→21:56)
[2023-01-15 08:00] LABS: ABG BASE EXCESS -0.6 mmol/L (-2.0-3.0); ABG HCO3 23.6 mmol/L (21.0-28.0); ABG PCO2 38 mmHg (35-48)
[2023-01-15] MEDS: Vitamin B Complex/Vit C/Folic Acid PO SCH (09:08)
[2023-01-15] MEDS: PANTOPRAZOLE 40 MG/VIAL IVP SCH ×2 (09:08→21:57)
[2023-01-15] MEDS: HYDROCORTISONE SOD SUCCINATE 100 MG/2 ML VIAL IV SCH ×3 (09:08→21:57)
[2023-01-15] MEDS: RIFAXIMIN 550 MG TABLET PO SCH ×2 (09:08→21:57)
[2023-01-15] MEDS: THIAMINE HCL 100 MG TABLET PO SCH (09:08)
[2023-01-15] MEDS ORDERED: LIDOCAINE HCL MPF 1% 5ML VIAL ONE (11:19)
[2023-01-15 11:49] LABS: HEMATOCRIT 22.7 % (42-54); MEAN CORPUSCULAR HEMOGLOBIN 31.4 pg (27.0-33.0); MEAN CORPUSCULAR HGB CONC 32.6 g/dL (32.0-36.0); MEAN CORPUSCULAR VOLUME 96.2 fL (79-99); NUCLEATED RED BLOOD CELLS 1.2 % (0.0-0.19); PLATELET COUNT (AUTO) 55 K/uL (130-400); RED BLOOD CELL COUNT(AUTO) 2.36 MIL/uL (4.50-6.20); RED CELL DISTRIBUTION WIDTH 22.5 % (11.0-15.5)
[2023-01-15 11:56] LABS: WHITE BLOOD COUNT (AUTO) 40.5 K/uL (4.8-10.8)
[2023-01-15 11:57] LABS: INR 2.71 (0.85-1.15); PROTHROMBIN TIME 29.5 SEC (9.6-11.6)
[2023-01-15 11:59] LABS: PARTIAL THROMBOPLASTIN TIME 51.9 SEC (26.3-35.5)
[2023-01-15 14:09] LABS: BAND NEUTROPHILS % (MANUAL) 9 % (0-2); LYMPHOCYTES % (MANUAL) 2 % (22-44); MAN.DIFF COMMENT-IMPRESSION MANUAL DIFFERENTIAL; MONOCYTES % (MANUAL) 4 % (2-9); PLATELET MORPHOLOGY COMMENT DECREASED; SEGMENTED NEUTROPHILS % 85 % (40-70)
[2023-01-15] MEDS ORDERED: COMPOUND IV MISC 1 EACH IVSOLN MISC PRN (17:30)
[2023-01-15 18:26] LABS: ABG BASE EXCESS -2.5 mmol/L (-2.0-3.0); ABG HCO3 20.8 mmol/L (21.0-28.0); ABG OXYGEN SATURATION 92.8 % (95.0-99.0); ABG PCO2 32 mmHg (35-48)
[2023-01-15] MEDS ORDERED: ALBUMIN (HUMAN) 25% 100 ML IV ONE (18:51)
[2023-01-15] MEDS ORDERED: LACTULOSE 20 GM/30 ML UDCUP PO PRN (20:00)
[2023-01-16] VITALS (127 sets, daily range): BP systolic 86–197; BP diastolic 40–148; PULSE 71–113; RESP 5–50; O2SAT 95–100
[2023-01-16 00:03] LABS: ABG BASE EXCESS -2.1 mmol/L (-2.0-3.0); ABG HCO3 20.4 mmol/L (21.0-28.0); ABG OXYGEN SATURATION 96.6 % (95.0-99.0); ABG PCO2 29 mmHg (35-48)
[2023-01-16] MEDS: DEXMEDETOMIDINE 400MCG/NS100ML IV SCH ×2 (02:30→07:52)
[2023-01-16] MEDS: MIDODRINE HCL 5 MG TABLET PO SCH ×3 (05:17→23:06)
[2023-01-16] MEDS: LACTULOSE 20 GM/30 ML UDCUP PO SCH ×5 (05:17→23:06)
[2023-01-16 05:42] LABS: BASOPHILS % (AUTO) 0.3 % (0.0-5.0); EOSINOPHILS % (AUTO) 0.1 % (0.0-8.0); LYMPHOCYTES % (AUTO) 5.5 % (21.0-51.0); MEAN CORPUSCULAR HEMOGLOBIN 31.2 pg (27.0-33.0); MEAN CORPUSCULAR HGB CONC 32.3 g/dL (32.0-36.0); MEAN CORPUSCULAR VOLUME 96.5 fL (79-99); MONOCYTES % (AUTO) 7.8 % (3.0-13.0); NEUTROPHILS % (AUTO) 81.6 % (40.0-77.0); NUCLEATED RED BLOOD CELLS 1.7 % (0.0-0.19); PLATELET COUNT (AUTO) 21 K/uL (130-400); RED BLOOD CELL COUNT(AUTO) 1.99 MIL/uL (4.50-6.20); RED CELL DISTRIBUTION WIDTH 21.8 % (11.0-15.5)
[2023-01-16 05:56] LABS: HEMATOCRIT 19.2 % (42-54); PARTIAL THROMBOPLASTIN TIME 69.1 SEC (26.3-35.5); WHITE BLOOD COUNT (AUTO) 34.4 K/uL (4.8-10.8)
[2023-01-16 06:12] LABS: ALBUMIN 1.9 g/dL (3.5-5.0); CREATININE 6.5 mg/dL (0.5-1.5); POTASSIUM 4.3 mmol/L (3.5-5.1); TOTAL PROTEIN, SERUM 3.7 g/dL (6.0-8.3)
[2023-01-16 06:44] LABS: INR 4.69 (0.85-1.15); PROTHROMBIN TIME 49.2 SEC (9.6-11.6)
[2023-01-16] MEDS: RIFAXIMIN 550 MG TABLET PO SCH ×2 (07:58→23:15)
[2023-01-16] MEDS: THIAMINE HCL 100 MG TABLET PO SCH (07:58)
[2023-01-16] MEDS: HYDROCORTISONE SOD SUCCINATE 100 MG/2 ML VIAL IV SCH ×3 (07:58→23:06)
[2023-01-16] MEDS: Vitamin B Complex/Vit C/Folic Acid PO SCH (07:58)
[2023-01-16] MEDS: PANTOPRAZOLE 40 MG/VIAL IVP SCH ×2 (07:58→23:06)
[2023-01-16] MEDS: MEROPENEM 500 MG in 0.9%NACL 100ML 100 ML IV SCH ×2 (07:58→23:07)
[2023-01-16 12:44] LABS: CREATININE 6.5 mg/dL (0.5-1.5); POTASSIUM 4.5 mmol/L (3.5-5.1)
[2023-01-16 12:58] LABS: ALBUMIN 2.4 g/dL (3.5-5.0); TOTAL PROTEIN, SERUM 4.4 g/dL (6.0-8.3)
[2023-01-16] MEDS ORDERED: IPRATROPIUM 0.5 MG/2.5 ML INH IH ONE (13:19)
[2023-01-16] MEDS ORDERED: VANCOMYCIN PROTOCOL PER PHARMACY IV SCH (15:00)
[2023-01-16] MEDS ORDERED: PHARMACY COMMUNICATION MISC SCH (15:00)
[2023-01-16 15:06] LABS: ABG BASE EXCESS -5.3 mmol/L (-2.0-3.0); ABG HCO3 19.5 mmol/L (21.0-28.0); ABG PCO2 36 mmHg (35-48)
[2023-01-16] MEDS ORDERED: SODIUM BICARB 50MEQ 50ML VIAL 100 ML ONE (15:10)
[2023-01-16] MEDS ORDERED: DESMOPRESSIN 40MCG INJ 20 MCG in 0.9%NACL 50ML 50 ML IJ SCH (15:15)
[2023-01-16] MEDS ORDERED: VANCOMYCIN 2GM/500 ML BAG 500 ML IV ONE (15:30)
[2023-01-16] MEDS: CHLORHEXIDINE GLUCONATE 473 ML MOUTHWASH MM SCH (17:53)
[2023-01-16 20:47] LABS: HEMATOCRIT 24.1 % (42-54); MEAN CORPUSCULAR HEMOGLOBIN 30.6 pg (27.0-33.0); MEAN CORPUSCULAR VOLUME 95.6 fL (79-99); NUCLEATED RED BLOOD CELLS 3.5 % (0.0-0.19); PLATELET COUNT (AUTO) 60 K/uL (130-400); RED BLOOD CELL COUNT(AUTO) 2.52 MIL/uL (4.50-6.20)
[2023-01-16 21:02] LABS: WHITE BLOOD COUNT (AUTO) 34.8 K/uL (4.8-10.8)
[2023-01-16 21:06] LABS: PROTHROMBIN TIME 40.3 SEC (9.6-11.6)
[2023-01-16 21:08] LABS: INR 3.79 (0.85-1.15)
[2023-01-16 22:05] LABS: LYMPHOCYTES % (MANUAL) 6 % (22-44); MAN.DIFF COMMENT-IMPRESSION MANUAL DIFFERENTIAL; MONOCYTES % (MANUAL) 10 % (2-9); PLATELET MORPHOLOGY COMMENT DECREASED; SEGMENTED NEUTROPHILS % 84 % (40-70)
[2023-01-16] MEDS: ARTIFICIAL TEARS 3.5 GM OINTMENT OU SCH (23:07)
[2023-01-17] VITALS (114 sets, daily range): BP systolic 60–133; BP diastolic 20–101; PULSE 71–118; RESP 13–43; O2SAT 87–100
[2023-01-17 00:13] LABS: ABG BASE EXCESS -6.7 mmol/L (-2.0-3.0); ABG HCO3 18.7 mmol/L (21.0-28.0); ABG OXYGEN SATURATION 56.3 % (95.0-99.0); ABG PCO2 37 mmHg (35-48)
[2023-01-17] MEDS ORDERED: FENTANYL 2500MCG+NS 250ML IV.SOLN IV SCH (01:00)
[2023-01-17] MEDS ORDERED: MIDAZOLAM HCL 50 MG in 0.9%NACL 50ML 50 ML IV SCH (01:00)
[2023-01-17] MEDS ORDERED: FENTANYL 1000MCG+NS 100ML 100 ML IV ONE (01:33)
[2023-01-17 05:42] LABS: ABG BASE EXCESS -13.6 mmol/L (-2.0-3.0); ABG HCO3 14.5 mmol/L (21.0-28.0); ABG OXYGEN SATURATION 98.2 % (95.0-99.0); ABG PCO2 44 mmHg (35-48)
[2023-01-17] MEDS ORDERED: SODIUM BICARB 50MEQ 50ML VIAL IV ONE ×2 (06:30→15:30)
[2023-01-17] MEDS ORDERED: PHARMACY COMMUNICATION MISC SCH ×2 (07:00→14:30)
[2023-01-17] MEDS: MIDODRINE HCL 5 MG TABLET PO SCH ×3 (07:12→21:13)
[2023-01-17] MEDS: LACTULOSE 20 GM/30 ML UDCUP PO SCH ×3 (07:12→19:04)
[2023-01-17] MEDS ORDERED: DEXTROSE 50%-WATER 50 ML DISP.SYRIN IV ONE ×2 (07:27→15:00)
[2023-01-17] MEDS ORDERED: MANNITOL 20% 500ML BAG 500 ML IV ONE (07:30)
[2023-01-17 08:07] LABS: BASOPHILS % (AUTO) 0.4 % (0.0-5.0); EOSINOPHILS % (AUTO) 0.1 % (0.0-8.0); LYMPHOCYTES % (AUTO) 5.4 % (21.0-51.0); MEAN CORPUSCULAR HEMOGLOBIN 31.6 pg (27.0-33.0); MEAN CORPUSCULAR HGB CONC 31.5 g/dL (32.0-36.0); MEAN CORPUSCULAR VOLUME 100.5 fL (79-99); MONOCYTES % (AUTO) 4.4 % (3.0-13.0); NEUTROPHILS % (AUTO) 81.4 % (40.0-77.0); NUCLEATED RED BLOOD CELLS 7.6 % (0.0-0.19); PLATELET COUNT (AUTO) 41 K/uL (130-400); RED BLOOD CELL COUNT(AUTO) 1.96 MIL/uL (4.50-6.20); WHITE BLOOD COUNT (AUTO) 24.5 K/uL (4.8-10.8)
[2023-01-17 08:19] LABS: INR 2.95 (0.85-1.15); PROTHROMBIN TIME 31.9 SEC (9.6-11.6)
[2023-01-17 08:20] LABS: PARTIAL THROMBOPLASTIN TIME 65.5 SEC (26.3-35.5)
[2023-01-17 08:36] LABS: HEMATOCRIT 19.7 % (42-54)
[2023-01-17 08:43] LABS: ALBUMIN 1.7 g/dL (3.5-5.0); BILIRUBIN,DIRECT 7.1 mg/dL (0.0-0.3); CREATININE 6.4 mg/dL (0.5-1.5); POTASSIUM 4.2 mmol/L (3.5-5.1); TOTAL PROTEIN, SERUM 3.3 g/dL (6.0-8.3)
[2023-01-17] MEDS ORDERED: VANCOMYCIN 1.5 GM/250 ML BAG 250 ML IV SCH (09:00)
[2023-01-17] MEDS ORDERED: NOREPINEPHRINE 16MG/NS 250ML 250 ML IV SCH (09:30)
[2023-01-17] MEDS ORDERED: NOREPINEPHRINE BITARTRATE 32 MG in 0.9% NACL 250ML 250 ML IV STA ×2 (09:46→14:39)
[2023-01-17] MEDS: CHLORHEXIDINE GLUCONATE 473 ML MOUTHWASH MM SCH ×2 (10:58→16:39)
[2023-01-17] MEDS: HYDROCORTISONE SOD SUCCINATE 100 MG/2 ML VIAL IV SCH ×3 (10:59→20:30)
[2023-01-17] MEDS: RIFAXIMIN 550 MG TABLET PO SCH ×2 (10:59→20:30)
[2023-01-17] MEDS: THIAMINE HCL 100 MG TABLET PO SCH (10:59)
[2023-01-17] MEDS: MEROPENEM 500 MG in 0.9%NACL 100ML 100 ML IV SCH ×2 (10:59→20:31)
[2023-01-17] MEDS: Vitamin B Complex/Vit C/Folic Acid PO SCH (10:59)
[2023-01-17] MEDS: PANTOPRAZOLE 40 MG/VIAL IVP SCH ×2 (10:59→20:30)
[2023-01-17 14:56] LABS: ABG BASE EXCESS -18.6 mmol/L (-2.0-3.0); ABG HCO3 9.9 mmol/L (21.0-28.0); ABG OXYGEN SATURATION 92.7 % (95.0-99.0); ABG PCO2 35 mmHg (35-48)
[2023-01-17] MEDS ORDERED: SODIUM BICARB 50MEQ 50ML VIAL 100 ML ONE (15:00)
[2023-01-17] MEDS ORDERED: SODIUM BICARB 8.4% 50ML SYRINGE IVP STA (15:01)
[2023-01-17] MEDS: VASOPRESSIN 20 UNITS in 0.9%NACL 100ML 100 ML IV SCH (15:11)
[2023-01-17] MEDS: CALCIUM GLUC 1GM 2 GM in 0.9%NACL 100ML 100 ML IV SCH (15:13)
[2023-01-17] MEDS: MANNITOL 20% 500ML BAG 500 ML IV SCH ×4 (15:19→21:14)
[2023-01-17] MEDS: SODIUM BICARB 8.4% 50ML SYRING 200 MEQ in DEXTROSE 10%-WATER 1,000 ML IV SCH ×2 (15:25→15:38)
[2023-01-17] MEDS ORDERED: CALCIUM GLUC 1GM/10ML VIAL IVPB SCH (15:30)
[2023-01-17] MEDS ORDERED: KAYEXALATE 15GM/60ML NG ONE (15:30)
[2023-01-17] MEDS ORDERED: 0.9%NACL 50ML IV SCH (15:30)
[2023-01-17] MEDS: DEXTROSE 50%-WATER 50 ML DISP.SYRIN IV PRN ×3 (16:23→22:05)
[2023-01-17] MEDS: NOREPINEPHRINE BITARTRATE 32 MG in 0.9% NACL 250ML 250 ML IV SCH (19:07)
[2023-01-17] MEDS: PHENYLEPHRINE HCL 100 MG in 0.9% NACL 250ML 250 ML IV SCH (19:09)
[2023-01-17] MEDS: ARTIFICIAL TEARS 3.5 GM OINTMENT OU SCH (20:34)
[2023-01-18] VITALS (29 sets, daily range): BP systolic 72–109; BP diastolic 24–73; PULSE 47–138; RESP 20
[2023-01-18] MEDS: VASOPRESSIN 20 UNITS in 0.9%NACL 100ML 100 ML IV SCH (00:13)
[2023-01-18] MEDS: NOREPINEPHRINE BITARTRATE 32 MG in 0.9% NACL 250ML 250 ML IV SCH (00:14)
[2023-01-18] MEDS: PHENYLEPHRINE HCL 100 MG in 0.9% NACL 250ML 250 ML IV SCH ×2 (00:15→02:46)
[2023-01-18] MEDS: DEXTROSE 50%-WATER 50 ML DISP.SYRIN IV PRN (00:28)
[2023-01-18] MEDS: LACTULOSE 20 GM/30 ML UDCUP PO SCH ×2 (00:28→05:40)
[2023-01-18] MEDS: MANNITOL 20% 500ML BAG 500 ML IV SCH ×2 (02:48→03:30)
[2023-01-18] MEDS: MIDODRINE HCL 5 MG TABLET PO SCH (05:38)
[2023-01-18] MEDS: CHLORHEXIDINE GLUCONATE 473 ML MOUTHWASH MM SCH (05:38)
[2023-01-18] MEDS ORDERED: MANNITOL 20% 500ML BAG 500 ML IV SCH (09:00)
== END 2023-01-18 07:27 | DRG 871 ==
LOC: EDH 11:04 → EDHIP 15:10 → 2BH 17:41
PROVIDERS: ADMIT Internal Medicine; ATTEND Internal Medicine
PROC: 30233N1 Transfusion of Nonautologous Red Blood Cells into Peripheral Vein, Percutaneous Approach (ICD-10-PCS; 2023-01-09)
PROC: 5A09357 Assistance with Respiratory Ventilation, Less than 24 Consecutive Hours, Continuous Positive Airway Pressure (ICD-10-PCS; 2023-01-10)
PROC: 30233K1 Transfusion of Nonautologous Frozen Plasma into Peripheral Vein, Percutaneous Approach (ICD-10-PCS; 2023-01-10)
PROC: 5A09357 Assistance with Respiratory Ventilation, Less than 24 Consecutive Hours, Continuous Positive Airway Pressure (ICD-10-PCS; 2023-01-11)
PROC: 30233R1 Transfusion of Nonautologous Platelets into Peripheral Vein, Percutaneous Approach (ICD-10-PCS; 2023-01-11)
PROC: 5A09357 Assistance with Respiratory Ventilation, Less than 24 Consecutive Hours, Continuous Positive Airway Pressure (ICD-10-PCS; 2023-01-13)
PROC: 02H633Z Insertion of Infusion Device into Right Atrium, Percutaneous Approach (ICD-10-PCS; 2023-01-15)
PROC: B548ZZA Ultrasonography of Superior Vena Cava, Guidance (ICD-10-PCS; 2023-01-15)
PROC: 5A09357 Assistance with Respiratory Ventilation, Less than 24 Consecutive Hours, Continuous Positive Airway Pressure (ICD-10-PCS; 2023-01-15)
PROC: 5A09357 Assistance with Respiratory Ventilation, Less than 24 Consecutive Hours, Continuous Positive Airway Pressure (ICD-10-PCS; 2023-01-16)
PROC: 5A1945Z Respiratory Ventilation, 24-96 Consecutive Hours (ICD-10-PCS; principal; 2023-01-17)
PROC: 0BH17EZ Insertion of Endotracheal Airway into Trachea, Via Natural or Artificial Opening (ICD-10-PCS; 2023-01-17)
PROC: 5A09357 Assistance with Respiratory Ventilation, Less than 24 Consecutive Hours, Continuous Positive Airway Pressure (ICD-10-PCS; 2023-01-17)
DX: A41.9 Sepsis, unspecified organism (principal); G93.41 Metabolic encephalopathy; K76.7 Hepatorenal syndrome; N18.6 End stage renal disease; K65.2 Spontaneous bacterial peritonitis; J18.9 Pneumonia, unspecified organism; J96.01 Acute respiratory failure with hypoxia; R65.21 Severe sepsis with septic shock; K76.6 Portal hypertension; M62.82 Rhabdomyolysis; N17.9 Acute kidney failure, unspecified; E87.20 Acidosis, unspecified; I13.2 Hypertensive heart and chronic kidney disease with heart failure and with stage 5 chronic kidney disease, or end stage renal disease; E87.1 Hypo-osmolality and hyponatremia; D68.8 Other specified coagulation defects; I50.22 Chronic systolic (congestive) heart failure; Z68.41 Body mass index [BMI] 40.0-44.9, adult; T82.838A Hemorrhage due to vascular prosthetic devices, implants and grafts, initial encounter; I62.9 Nontraumatic intracranial hemorrhage, unspecified; K76.82 Hepatic encephalopathy; K70.31 Alcoholic cirrhosis of liver with ascites; B96.20 Unspecified Escherichia coli [E. coli] as the cause of diseases classified elsewhere; D50.9 Iron deficiency anemia, unspecified; D69.59 Other secondary thrombocytopenia; E16.2 Hypoglycemia, unspecified; E66.01 Morbid (severe) obesity due to excess calories; E78.2 Mixed hyperlipidemia; E87.6 Hypokalemia; F10.20 Alcohol dependence, uncomplicated; F32.9 Major depressive disorder, single episode, unspecified; J30.9 Allergic rhinitis, unspecified; K72.10 Chronic hepatic failure without coma; R29.6 Repeated falls; T38.0X5A Adverse effect of glucocorticoids and synthetic analogues, initial encounter; Z53.29 Procedure and treatment not carried out because of patient's decision for other reasons; Z66 Do not resuscitate; W18.39XA Other fall on same level, initial encounter; Y93.89 Activity, other specified; Y92.89 Other specified places as the place of occurrence of the external cause; Y99.8 Other external cause status; Z74.01 Bed confinement status; Z79.899 Other long term (current) drug therapy; Z80.42 Family history of malignant neoplasm of prostate; Z82.0 Family history of epilepsy and other diseases of the nervous system; Z87.11 Personal history of peptic ulcer disease; Z87.442 Personal history of urinary calculi; Z91.119 Patient's noncompliance with dietary regimen due to unspecified reason; Z90.49 Acquired absence of other specified parts of digestive tract; Z98.84 Bariatric surgery status; Z99.2 Dependence on renal dialysis
CPT/HCPCS: 31500; 36415; 36430; 36600; 70450; 71045; 71250; 74018; 74176; 76705; 76770; 80048; 80053; 80061; 80076; 81001; 82010; 82140; 82330; 82435; 82550; 82803; 82947; 82948; 83540; 83550; 83605; 83690; 83735; 83880; 84100; 84132; 84145; 84295; 84484; 85007; 85014; 85018; 85025; 85027; 85384; 85610; 85730; 86701; 86704; 86706; 86850; 86900; 86901; 86923; 86927; 87040; 87077; 87088; 87186; 87340; 87390; 90935; 93005; 93306; 93970; 94002; 94003; 94640; 94660; A4344; C9113; G0378; J0461; J0610; J0692; J0696; J1720; J1940; J2185; J2354; J2371; J2597; J3010; J3411; J3430; J3475; J3490; J7030; J7050; J7070; P9012; P9016; P9017; P9034; P9046; P9047; A4600; A9900; J3370